=== PATIENT | male | born 1970 | race Caucasian/White ===

== ENCOUNTER 2018-05-10 16:14 | Emergency (ER) | payer OTHER, MEDICAID ==
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
[2018-05-10] MEDS ORDERED: IOPAMIDOL (ISOVUE-300) 100 ML BTL ONE (16:45)
[2018-05-10] MEDS ORDERED: KETOROLAC 30 MG/1 ML SDV IVP ONE ×2 (17:59)
[2018-05-10] MEDS ORDERED: LORazepam 2 MG/ML INJ IVP ONE (18:00)
[2018-05-10 18:05] LABS: PLATELET COUNT 244 10^3/uL (150-400)
[2018-05-10 18:13] LABS: INR 0.93 (0.83-1.16); PROTIME(PATIENT) 12.7 SEC (12.0-15.0)
[2018-05-10] MEDS ORDERED: OXYCODONE/APAP 5/325 TAB PO ONE (20:03)
[2018-05-10] MEDS ORDERED: CYCLOBENZAPRINE 10 MG TAB PO ONE (20:03)
[2018-05-10] MEDS ORDERED: LORazepam 1 MG TAB PO ONE (20:04)
[2018-05-10 21:18] VITALS: BP 128/77
== END 2018-05-10 21:18 | disposition home or self-care (01) ==
LOC: EDUNIT#
DX: T14.8XXA Other injury of unspecified body region, initial encounter (principal); S93.491A Sprain of other ligament of right ankle, initial encounter; S39.81XA Other specified injuries of abdomen, initial encounter; V48.0XXA Car driver injured in noncollision transport accident in nontraffic accident, initial encounter; R40.2412 Glasgow coma scale score 13-15, at arrival to emergency department; Y92.410 Unspecified street and highway as the place of occurrence of the external cause; Y99.8 Other external cause status; Y93.84 Activity, sleeping
CPT/HCPCS: 82435-PO; 82565-PO; 82947-PO; 84132-PO; 84295-PO; 84520-PO; 85014-PO; 96374; G0480; J1885; J2060; Q9967